=== PATIENT | female | born 1980 | race Two or more races ===

== ENCOUNTER 2021-02-01 15:34 | Inpatient (IN) | payer OTHER ==
[~2021-02-01] VITALS: Ht 162.6 cm; Wt 68.0 kg
[2021-02-02] MEDS ORDERED: TRIAMCINOLONE A15 G1 (08:01)
[2021-02-05] MEDS ORDERED: INTESTINEX680 M1 PO (11:19)
[2021-02-05] MEDS ORDERED: CIPRO500 MG PO (11:19)
[2021-02-05] MEDS ORDERED: FLAGYL500MG PO (11:20)
== END 2021-02-05 11:57 | disposition home or self-care (01) | DRG 392 ==
LOC: ER 15:34 → MEDJ 20:47 → MEDI 20:47
PROVIDERS: ADMIT Internal Medicine; ATTEND Internal Medicine
PROC: BW20ZZZ Computerized Tomography (CT Scan) of Abdomen (ICD-10-PCS; principal; 2021-02-02)
PROC: BW40ZZZ Ultrasonography of Abdomen (ICD-10-PCS; 2021-02-03)
DX: K57.32 Diverticulitis of large intestine without perforation or abscess without bleeding (principal); D72.828 Other elevated white blood cell count; Z20.822 Contact with and (suspected) exposure to COVID-19

== ENCOUNTER 2021-04-18 09:11 | Day surgery (SDC) | payer OTHER ==
[~2021-04-18 09:11] MED LIST: CIPRO500 MG PO; FLAGYL500MG PO; INTESTINEX680 M1 PO; TRIAMCINOLONE A15 G1
== END 2021-04-18 14:00 | disposition home or self-care (01) ==
LOC: AMB-ENDOS 09:11
PROVIDERS: ATTEND Surgery
DX: K63.5 Polyp of colon (principal); K62.1 Rectal polyp; Z20.822 Contact with and (suspected) exposure to COVID-19

== ENCOUNTER 2021-05-29 10:22 | Outpatient (CLI) | payer OTHER | END 2021-05-29 10:26 | disposition home or self-care (01) | LOC: EKG 10:22 | PROVIDERS: ATTEND Surgery | DX: Z01.810 Encounter for preprocedural cardiovascular examination (principal) ==

== ENCOUNTER 2021-05-30 12:15 | Inpatient (IN) | payer OTHER ==
[~2021-05-30] VITALS: Ht 162.6 cm; Wt 60.8 kg
[2021-06-01] MEDS ORDERED: OMEGA-3 ACID ETH1 GM (08:09)
[2021-06-01] MEDS ORDERED: INTESTINEX680 M1 (08:10)
[2021-06-07] MEDS ORDERED: PERCOCET 5-3251 EACH PO (14:54)
== END 2021-06-07 22:29 | disposition home or self-care (01) | DRG 331 ==
LOC: O/R 06-01 05:45 → SURH 06-01 05:45
PROVIDERS: ADMIT Surgery; ATTEND Surgery
PROC: 0DBP4ZZ Excision of Rectum, Percutaneous Endoscopic Approach (ICD-10-PCS; 2021-06-01)
PROC: 0DJD8ZZ Inspection of Lower Intestinal Tract, Via Natural or Artificial Opening Endoscopic (ICD-10-PCS; 2021-06-01)
PROC: 0DTN4ZZ Resection of Sigmoid Colon, Percutaneous Endoscopic Approach (ICD-10-PCS; principal; 2021-06-01 07:00)
DX: K57.32 Diverticulitis of large intestine without perforation or abscess without bleeding (principal); R10.32 Left lower quadrant pain; R19.4 Change in bowel habit; K63.5 Polyp of colon; K62.1 Rectal polyp

== ENCOUNTER 2021-06-16 09:03 | Inpatient (IN) | payer OTHER ==
[~2021-06-16] VITALS: Ht 162.6 cm; Wt 55.8 kg
[~2021-06-16 09:03] MED LIST changes: +INTESTINEX680 M1; +OMEGA-3 ACID ETH1 GM; +PERCOCET 5-3251 EACH PO
[2021-06-16] MEDS ORDERED: MIRALAX17 GM PO (09:15)
[2021-06-18] MEDS ORDERED: CIPRO500 MG PO (09:09)
[2021-06-18] MEDS ORDERED: METRONIDAZOLE500 MG PO (09:11)
== END 2021-06-18 11:09 | disposition home or self-care (01) | DRG 699 ==
LOC: ER 09:03 → SURH 20:17
PROVIDERS: ADMIT Surgery; ATTEND Surgery
PROC: BW21YZZ Computerized Tomography (CT Scan) of Abdomen and Pelvis using Other Contrast (ICD-10-PCS; principal; 2021-06-16)
DX: N99.89 Other postprocedural complications and disorders of genitourinary system (principal); N39.0 Urinary tract infection, site not specified; Z20.822 Contact with and (suspected) exposure to COVID-19; B96.89 Other specified bacterial agents as the cause of diseases classified elsewhere